=== PATIENT | male | born 1980 | race Caucasian/White ===

== ENCOUNTER 2021-03-26 04:58 | Inpatient (IN) | payer OTHER ==
[~2021-03-26] VITALS: Ht 180.3 cm; Wt 85.7 kg
[2021-03-26] MEDS ORDERED: FOLIC ACID 1 MG, THIAMINE HCL 100 MG, MVI, ADULT NO.1 10 ML in DEXTROSE 5% WATER 1,000 ML IV ONE (05:30)
[2021-03-26] MEDS ORDERED: LORAZEPAM 2MG/ML CPJ IV ONE ×2 (05:30→06:45)
[2021-03-26 06:11] LABS: BASOPHILS % 0.2 % (0.0-2.0); HEMATOCRIT. 50.1 % (42.0-52.0); HEMOGLOBIN. 17.2 g/dL (14.0-18.0); LYMPHOCYTES % 16.2 % (20.0-50.0); MEAN PLATELET VOLUME 7.3 fl (7.4-10.4); MONOCYTES % 7.3 % (2.0-8.0); NEUTROPHILS % 76.3 % (40.0-76.0); PLATELET 196 x1000/uL (130-400); RED BLOOD CELL COUNT 5.57 mill/uL (4.7-6.1); RED CELL DISTRIBUTION WIDTH 13.2 % (11.6-14.6)
[2021-03-26 06:17] LABS: CHLORIDE 98 mEq/L (98-107)
[2021-03-26 06:20] LABS: ETHANOL BLOOD 216 mg/dL
[2021-03-26] MEDS ORDERED: ONDANSETRON HCL 4MG/2ML INJ IV ONE (06:30)
[2021-03-26] MEDS ORDERED: BUPRENORPHINE 8MG SL TABLET SL ONE (07:15)
[2021-03-26] MEDS ORDERED: SODIUM CHLORIDE 0.9% 1,000 ML IV ONE (08:15)
[2021-03-26 09:15] LABS: CLARITY URINE CLEAR (CLEAR); COLOR URINE DK YELLOW (YELLOW); KETONES URINE NEGATIVE (NEGATIVE); LEUKOCYTE ESTERASE URINE NEGATIVE (NEGATIVE); NITRITE URINE NEGATIVE (NEGATIVE); OCCULT BLOOD URINE 2+ (NEGATIVE); PROTEIN URINE 3+ (NEGATIVE); SPECIFIC GRAVITY URINE 1.041 (1.005-1.030); UROBILINOGEN URINE 0.2 E.U./dL (0.2-1.0)
[2021-03-26] MEDS ORDERED: CHLORDIAZEPOXIDE 25MG CAPSULE PO ONE (09:30)
[2021-03-26 09:41] LABS: METHADONE URINE SCREEN NEGATIVE (NEGATIVE); OPIATES URINE SCREEN NEGATIVE (NEGATIVE)
[2021-03-26 09:42] LABS: *AMPHETAMINES SCREEN URINE NEGATIVE (NEGATIVE); *BARBITURATES SCREEN URINE NEGATIVE (NEGATIVE); *BENZODIAZEPINES SCREEN URINE PRESUMTIVE POSITIVE (NEGATIVE); *COCAINE SCREEN URINE PRESUMTIVE POSITIVE (NEGATIVE); CANNABINOID URINE SCREEN NEGATIVE (NEGATIVE); PHENCYCLIDINE URINE SCREEN NEGATIVE (NEGATIVE)
[2021-03-26] MEDS ORDERED: LORAZEPAM 2MG/ML CPJ IV PRN (11:30)
[2021-03-26] MEDS ORDERED: CLONIDINE 0.1MG TABLET PO PRN (11:30)
[2021-03-26] MEDS ORDERED: ONDANSETRON HCL 4MG/2ML INJ IV PRN (11:30)
[2021-03-26] MEDS ORDERED: ACETAMINOPHEN 325MG TABLET PO PRN ×2 (11:30)
[2021-03-26] MEDS ORDERED: NITROGLYCERIN 0.4MG TABLET SL SL PRN (11:30)
[2021-03-26] MEDS ORDERED: MAGNESIUM/ALUMINUM HYDROXIDE/SIMETHICONE 30ML UDC PO PRN (11:30)
[2021-03-26] MEDS ORDERED: IPRATROPIUM/ALBUTEROL 0.5-3(2.5)MG/3ML NEB NEB PRN (11:30)
[2021-03-26] MEDS ORDERED: POTASSIUM CHLORIDE 20MEQ TABLET SR PO NR (11:30)
[2021-03-26] MEDS ORDERED: DOCUSATE SODIUM 100MG CAPSULE PO PRN (11:30)
[2021-03-26] MEDS ORDERED: CHLORDIAZEPOXIDE 5 MG CAPSULE PO SCH ×2 (12:00→22:00)
[2021-03-26] MEDS ORDERED: CHLORDIAZEPOXIDE 10MG CAPSULE PO ONE (12:00)
[2021-03-26] MEDS ORDERED: KCL 20MEQ/100ML PREMIX 100 ML IV SCH (12:00)
[2021-03-26] MEDS: ENOXAPARIN 40MG/0.4ML SYR SUBCUT SCH (12:41)
[2021-03-26] MEDS: DILTIAZEM HCL 60MG TABLET PO SCH ×2 (12:54→18:29)
[2021-03-26] MEDS: SUCRALFATE 1 G/10 ML UDC PO SCH ×3 (14:00→22:27)
[2021-03-26] MEDS ORDERED: QUETIAPINE FUMARATE 50MG TABLET PO SCH (17:45)
[2021-03-26] MEDS ORDERED: DILTIAZEM HCL 5MG/ML 5ML VIAL IV SCH (22:15)
[2021-03-26] MEDS: FAMOTIDINE 20MG TABLET PO SCH (22:26)
[2021-03-26] MEDS: CHLORDIAZEPOXIDE 5 MG CAPSULE PO SCH (23:02)
[2021-03-27] VITALS (8 sets, daily range): BP systolic 113–162; BP diastolic 74–108
[2021-03-27] MEDS: DILTIAZEM HCL 90MG TABLET PO SCH ×4 (00:37→17:51)
[2021-03-27] MEDS: LORAZEPAM 2MG/ML CPJ IV PRN ×2 (02:28→17:51)
[2021-03-27 05:16] LABS: BASOPHILS % 0.5 % (0.0-2.0); EOSINOPHILS % 0.7 % (0.0-5.0); HEMATOCRIT. 41.7 % (42.0-52.0); HEMOGLOBIN. 14.4 g/dL (14.0-18.0); LYMPHOCYTES % 30.5 % (20.0-50.0); MEAN CORPUSCULAR HEMOGLOBIN 31.5 pg (28.0-32.0); MEAN CORPUSCULAR VOLUME 91.2 fL (80.0-94.0); MEAN PLATELET VOLUME 7.3 fl (7.4-10.4); NEUTROPHILS % 55.3 % (40.0-76.0); PLATELET 124 x1000/uL (130-400); RED BLOOD CELL COUNT 4.57 mill/uL (4.7-6.1); RED CELL DISTRIBUTION WIDTH 12.9 % (11.6-14.6)
[2021-03-27 05:18] LABS: CHLORIDE 95 mEq/L (98-107)
[2021-03-27 05:24] LABS: PHOSPHORUS 2.3 mg/dL (2.5-4.9)
[2021-03-27] MEDS: CHLORDIAZEPOXIDE 5 MG CAPSULE PO SCH ×3 (06:26→20:31)
[2021-03-27] MEDS: SUCRALFATE 1 G/10 ML UDC PO SCH ×4 (06:33→20:30)
[2021-03-27] MEDS: FAMOTIDINE 20MG TABLET PO SCH ×2 (09:50→20:30)
[2021-03-27] MEDS: ENOXAPARIN 40MG/0.4ML SYR SUBCUT SCH (09:50)
[2021-03-27] MEDS ORDERED: AMLO10TA80 PO (11:19)
[2021-03-27] MEDS ORDERED: BACL-141 PO (11:19)
[2021-03-27] MEDS ORDERED: SERT100T PO (11:19)
[2021-03-27] MEDS ORDERED: BUPR300T52 PO (11:19)
[2021-03-27] MEDS ORDERED: GABA-290 PO ×2 (11:19)
[2021-03-27] MEDS ORDERED: QUET400T PO (11:19)
[2021-03-28] VITALS (7 sets, daily range): BP systolic 131–158; BP diastolic 90–94
[2021-03-28] MEDS: LORAZEPAM 2MG/ML CPJ IV PRN ×3 (05:49→15:59)
[2021-03-28] MEDS: CHLORDIAZEPOXIDE 5 MG CAPSULE PO SCH ×2 (05:50→13:47)
[2021-03-28] MEDS: DILTIAZEM HCL 90MG TABLET PO SCH ×4 (05:50→17:50)
[2021-03-28] MEDS: SUCRALFATE 1 G/10 ML UDC PO SCH ×3 (05:50→15:59)
[2021-03-28] MEDS: ENOXAPARIN 40MG/0.4ML SYR SUBCUT SCH (09:23)
[2021-03-28] MEDS: GUAIFENESIN 200MG/10ML SUGAR FREE UDC PO PRN ×2 (09:23→17:50)
[2021-03-28] MEDS: FAMOTIDINE 20MG TABLET PO SCH (09:24)
== END 2021-03-28 22:32 | disposition left against medical advice (07) | DRG 641 ==
LOC: ER 04:58 → MICUSO 09:20 → EDBEDREQTM 09:29 → EDBEDREQ 09:29 → CANRESERV 15:14 → ENRESERV 15:14 → CANRESERV 17:21 → 7EST 03-27 07:47
PROVIDERS: ADMIT Internal Medicine; ATTEND Internal Medicine
DX: E87.6 Hypokalemia (principal); F10.239 Alcohol dependence with withdrawal, unspecified; F31.64 Bipolar disorder, current episode mixed, severe, with psychotic features; F11.23 Opioid dependence with withdrawal; I10 Essential (primary) hypertension; Z20.822 Contact with and (suspected) exposure to COVID-19; Z53.29 Procedure and treatment not carried out because of patient's decision for other reasons
CPT/HCPCS: 36415; 71045; 80053; 80305; 80320; 81003; 83036; 83735; 84100; 85025; 87426; 93970; 99291; J1650; J2060; J2405; J3411; J3480; J3490; J7030; J7070; G0480